=== PATIENT | male | born 1980 | race Caucasian/White ===

== ENCOUNTER → 2022-09-07 | Outpatient (CLI) | payer BC ==
--- NOTE | 2022-09-07 08:45 | US ---
EXAMINATION TYPE: US scrotum with doppler. Grayscale and color Doppler Duplex imaging performed of t he scrotum. 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 EXAM MEASUREMENTS: TESTICLES: Right Testicle: 4.9 x 2.2 x 2.7 cm Left Testicle: 4.8 x 1.9 x 2.5 cm EPIDIDYMIS HEAD: Right Epididymis: 1.0 cm Left Epididymis: 1.1 cm Doppler performed to assess for testicular vascularity; good bilateral color flow and waveforms are s een. There is no evidence of testicular torsion. Presence of hydroceles: no Presence of varicoceles: Yes on left, dilated vessels at 4-5mm IMPRESSION: Left-sided varicocele is noted. Otherwise unremarkable study.
== END | disposition home or self-care (01) ==
LOC: RADUSWWP 06:53
PROVIDERS: ATTEND Family Medicine
DX: I86.1 Scrotal varices (principal); N50.89 Other specified disorders of the male genital organs
CPT/HCPCS: 76870; 93975

== ENCOUNTER 2024-03-06 13:22 | Day surgery (SDC) | payer BC ==
[~2024-03-06 13:22] MED LIST: LACTATED RINGERS 1,000 ML IV SCH; LIDOCAINE 1% (10MG/ML) FOR IV START INTRADERMA PRN
[2024-03-06] MEDS ORDERED: PROPOFOL 10 MG/ML 20 ML VIAL IV ONE (14:41)
--- NOTE | 2024-03-06 15:01 | P.OP ---
Date of Procedure: 03/06/24 Preoperative Diagnosis: internal and external hemorrhoids Postoperative Diagnosis: internal and external hemorrhoids Procedure(s) Performed: colonoscopy Anesthesia: MAC Surgeon: Villa Foster Pathology: none sent Condition: stable Disposition: PACU Description of Procedure: the patient's placed on the endoscopy table in the lateral position. He received IV sedation. Digital rectal exam was performed. This revealed internal and external hemorrhoids. The flexible colonoscope was then placed patient anus and passed throughout the colon. The ileocecal valve was not visualized with tortuosity valve. This point scope withdrawn. The vivisualized right colon appeared normal. The transverse colon appeared normal. The descending and sigmoid colon appeared normal. Scope was brought back the rectum and this appeared normal. Scope withdrawn through the anus and internal and external hemorrhoids are noted. Scope withdrawn for patient.
[2024-03-06] MEDS: IV FLUID CONTINUATION 800 ML IV ONE (15:18)
[2024-03-06 15:21] VITALS: BP 121/80; PULSE 78; RESP 16
== END 2024-03-06 17:51 | disposition home or self-care (01) ==
LOC: ORWHC2ENDO 13:22
PROVIDERS: ATTEND Surgery
DX: K64.4 Residual hemorrhoidal skin tags (principal); K64.8 Other hemorrhoids; K21.9 Gastro-esophageal reflux disease without esophagitis; F12.90 Cannabis use, unspecified, uncomplicated; F17.200 Nicotine dependence, unspecified, uncomplicated; Z79.899 Other long term (current) drug therapy
CPT/HCPCS: 45378; J2704; 45380